=== PATIENT | female | born 2000 | race Caucasian/White ===

== ENCOUNTER 2024-10-20 11:46 | Emergency (ER) | payer MEDICAID, SELFPAY ==
[2024-10-20 11:48] VITALS: BP 134/83; PULSE 73; RESP 16; TEMP 36.9; O2SAT 100; BMI 23.5
--- NOTE | 2024-10-20 12:30 | US_ITS ---
PROCEDURE: TRANSVAGINAL NON-, 10/20/2024 REASON FOR EXAM: PELVIC PAIN, RECENT MISCARRIAGE TECHNIQUE: Grayscale, color Doppler, and spectral Doppler transvaginal pelvic ultrasound was performed. COMPARISON: None FINDINGS: Uterus: 9.4 x 5.6 x 3.9 cm, Anteverted. Unremarkable echotexture. Endometrium: 12 mm, vaguely trilaminar. No detected endometrial vascularity, however there is enhanced myometrial vascularity. Few punctate echogenic foci without shadowing up to 2 mm could reflect tiny calcifications or perhaps polyps. Cervix: Unremarkable. Right ovary: 3.6 x 3.5 x 2.7 cm. Unremarkable. Normal low resistance arterial and potentially faint superimposed venous waveforms. Left ovary: 3.9 x 3.4 x 2.3 cm. 1.6 x 1.6 x 1.1 cm simple appearing unilocular likely dominant follicle/physiologic cyst, O-RADS 1, no follow-up. Normal low resistance arterial waveforms. Free fluid: None visualized. Other: Prominent parauterine vasculature. US/Transvaginal Non- IMPRESSION: 1. Endometrial thickness 12 mm. Retained products is possible given thickness greater than 10 mm, however there is no detected endometrial vascularity to confirm this. Clinical follow-up recommended includ ing serial beta HCG. 2. Enhanced myometrial vascularity is a nonspecific finding in the s etting. Recommend attention on above recommended follow-up, as an underlying AVM could appear similarly, particularly if there i s a history of uterine instrumentation. 3. Few tiny endometrial echogenic foci up to 2 mm may reflect calcifications or perhaps tiny polyps. 4. Additional description as above. Reading Location: [id number]
--- NOTE | 2024-10-20 12:34 | ED.VIS.FEGU ---
HPI HPI - Female History of Present Illness Chief Complaint: Vag Bleeding Informant: patient Narrative Narrative: Patient is a 24-year-old female reports that she is G5, P2 who recently had a 13-week miscarriage. She states that she had a miscarriage at home and saw passage of the baby. This was on 10/30. She does not after she had BV and was treated for that at urgent care. She had her first period after this 1/2 weeks ago. She states she passed more tissue. She notes that she has had some mild spotting but today had a bad cramping. Not having any bleeding. Is concerned that maybe she has retained products of conception and came in. She denies any chance of being again. She has not had a subsequent test. Denies any fever or chills. Denies any urinary symptoms. Is not currently having any vaginal bleeding. Recently relocated to the [facility] from [place] and does not have an [employer]. PFSH PFSH Medical History no medical history Allergy/AdvReac Type Severity Reaction Status Date / Time iodine Allergy Hives Verified 10/20/24 11:50 Surgical History no surgical history Social History Smoking Status: Never smoker ROS ROS ED Constitutional Constitutional ED: Denies chills or fever(s) Cardiovascular Cardiovascular: Denies chest pain Respiratory/Chest Respiratory/Chest: Denies cough Gastrointestinal Gastrointestinal: Reports abdominal pain; Denies constipation, diarrhea, nausea or vomiting Musculoskeletal Musculoskeletal: Denies arthralgias or myalgias Integumentary Denies rash Neurologic Neurologic: Denies weakness Psychiatric Psychiatric: Denies anxiety or depression Hematologic/Lymphatic Hematologic/Lymphatic: Denies easy bleeding or easy bruising EXAM Physical Exam Const Vital Signs: 10/20/24 11:48 10/20/24 13:47 Temperature 98.5 F Temperature Source Oral Pulse Rate 73 78 Respiratory Rate 16 16 Blood Pressure 134/83 H 105/67 Blood Pressure Mean 100 79 Pulse Ox 100 99 Oxygen Delivery Method Room Air Positive well nourished and well developed General Appearance ED: well developed and NAD; Negative for pallor HEENT Reports moist mucous membranes Neck supple Chest Wall inspection of chest normal and palpation of chest normal Resp normal respiratory effort and clear to auscultation bilaterally Cardio regular rate and regular rhythm GI normal to inspection, nondistended, normoactive bowel sounds, soft to palpation and non-tender Back/Spine no CVA tenderness Neuro Sensorium / Orientation: alert Motor Exam: Negative for general weakness Psych mental status grossly normal Skin no rashes or lesions noted and no wounds General Skin Exam: Negative for pallor MDM MDM MDM Narrative Medical decision making narrative: Patient is a 24-year-old female who reports miscarriage at home about a month and a half ago presenting with worsening pelvic abdominal pain. Differential includes urinary tract infection, new , incomplete and endometritis. She is well-appearing with normal vital signs. She is afebrile. She has a benign abdominal exam. She is not having any significant bleeding at this time for the patient. Blood work occluding CBC, blood type, hCG quantitative and CMP is obtained. These are normal. Her quant is negative which is not consistent with retained products of conception. She is O+ and does not require RhoGAM. Ultrasound does show some slight thickening of the endometrium at 12 mm however there is no detected endometrial vascularity to confirm retained products of conception. There is some enhancement medial vascularity which is nonspecific. I did speak with [employer] on-call, Dr. Gordon. She states as the quant is negative and she is not having any bleeding and low suspicion for retained products. States that endometrial thickness of 12 mm at her age can be a normal variant. Is agreeable with outpatient follow-up. Patient states she needs to leave the ER. She does not want to stay for urinalysis. Discussed that without a urinalysis I cannot rule out UTI as the cause of her pelvic pain. 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 Is encouraged to follow-up outpatient with [employer]. Given return precautions. Discharged home in stable condition. Lab Data Attestation: I reviewed the patient's lab results. Labs: Laboratory Results - last 24 hr 10/20/24 12:10 WBC 4.7 RBC 4.39 Hgb 13.4 Hct 39.6 MCV 90.2 MCH 30.5 MCHC 33.8 RDW Std Deviation 39.7 RDW Coeff of Amanda 11.9 Plt Count 250 MPV 11.1 Immature Gran % (Auto) 0.200 Neut % (Auto) 51.8 Lymph % (Auto) 40.0 [place] % (Auto) 6.8 Eos % (Auto) 0.6 Baso % (Auto) 0.6 Absolute Neuts (auto) 2.4 Absolute Lymphs (auto) 1.88 Nucleated RBC % 0 Sodium 141 Potassium 4.0 Chloride 106 Carbon Dioxide 23.6 Anion Gap 11 BUN 7 Creatinine 0.76 Estim Creat Clear Calc 115.14 Est GFR (MDRD) Non-Af 111 BUN/Creatinine Ratio 8.5 L Glucose 88 Calcium 9.6 Total Bilirubin 0.35 AST 21 ALT 17 Alkaline Phosphatase 50 Total Protein 7.6 Albumin 4.3 Globulin 3.3 Albumin/Globulin Ratio 1.3 HCG, Quant < 1 Blood Type O POSITIVE Radiography Diagnostic Testing: Clinical Impression(s) from Imaging Studies Transvaginal US 10/20/24 12:30 IMPRESSION: 1. Endometrial thickness 12 mm. Retained products is possible given thickness greater than 10 mm, however there is no detected endometrial vascularity to confirm this. Clinical follow-up recommended including serial beta HCG. 2. Enhanced myometrial vascularity is a nonspecific finding in the setting. Recommend attention on above recommended follow-up, as an underlying AVM could appear similarly, particularly if there is a history of uterine instrumentation. 3. Few tiny endometrial echogenic foci up to 2 mm may reflect calcifications or perhaps tiny polyps. 4. Additional description as above. Reading Location: [facility] Discharge Plan Triage Chief Complaint: Vag Bleeding ED Provider: Tori Escobedo Dx/Rx/DC Orders Clinical Impression: Abnormal uterine bleeding, Pelvic pain Instructions: ED Dysfunctional Uterine Bleeding Primary Care Provider: Care Physician,No Primary Referrals: Virginia Gordon MD [Med Staff - Active Staff] - Care Physician,No Primary [Primary Care Provider] - Activity Restrictions/Additional Instructions: Please follow-up with [employer]. You have some slight thickening of your endometrial lining however your hormone is negative as we do not suspect you have retained fries of conception. Print Language: Lithuanian Disposition Disposition: Home, Self Care
[2024-10-20 13:01] LABS: Absolute Lymphocyte Count 1.88 X10^3/uL (0.83-4.51); Absolute Neutrophil Count 2.4 X10^3/uL (2.0-7.7); Basophil# 0.03 X10^3/uL; Basophil% 0.6 % (0-1); Eosinophil# 0.03 X10^3/uL; Eosinophils% 0.6 % (0-5); Hematocrit 39.6 % (37-47); Hemoglobin 13.4 g/dL (12.0-15.0); Lymphocyte # 1.88 X10^3/ul (0.83-4.51); Mean Corp Hgb Conc 33.8 g/dL (32-36); Mean Corpuscular Hgb 30.5 pg (27.0-32.0); Mean Corpuscular Volume 90.2 fL (81-99); Mean Platelet Vol. 11.1 fl (6.2-12.0); Monocyte# 0.32 X10^3/uL; Monocyte% 6.8 % (0-10); NRBC Flagged by Analyzer 0 % (0-5); Neutrophil # 2.43 X10^3/uL (2.7-7.7); Neutrophil % 51.8 % (47-70); Platelet Count 250 K/mm3 (150-450); RBC Distribution Width CV 11.9 % (11.6-14.6); RBC Distribution Width SD 39.7 fl (35.1-43.9); Red Blood Count 4.39 M/mm3 (4.2-5.4); White Blood Count 4.7 K/mm3 (4.4-11.0)
[2024-10-20 13:16] LABS: hCG Titer Quant., Serum < 1 mIU/mL (<9 non-preg)
[2024-10-20 13:47] VITALS: BP 105/67; PULSE 78; RESP 16; O2SAT 99
[2024-10-20 14:02] LABS: ALB/GLOB Ratio 1.3 RATIO (0.9-2.4); AST(SGOT) 21 U/L (<=31); Alanine Aminotransfer ALT/SGPT 17 U/L (<=34); Albumin, Serum 4.3 g/dL (3.5-5.0); Alkaline Phosphatase 50 U/L (35-104); Anion Gap 11 (5-15); BUN 7 mg/dL (4-19); BUN/Creat Ratio 8.5 RATIO (10-20); Calcium,Total 9.6 mg/dL (7.6-11.0); Carbon Dioxide 23.6 mmol/L (21.0-32.0); Chloride 106 mmol/L (98-108); Creatinine, Serum 0.76 mg/dL (0.70-1.20); EST Glomerular Filtration Rate 111 (>60); Estimated Creatinine Clearance 115.14 ml/min (50-250); Globulin 3.3 g/dL (2.2-4.2); Glucose 88 mg/dL (70-99); Protein, Total 7.6 g/dL (5.9-8.4); Sodium Level 141 mmol/L (133-145); Total Bilirubin 0.35 mg/dL (0.00-1.30)
== END 2024-10-20 15:07 | disposition home or self-care (01) ==
PROVIDERS: Emergency Provider Emergency Medicine; Visit Provider Emergency Medicine
DX: N93.8 Other specified abnormal uterine and vaginal bleeding (principal); R10.2 Pelvic and perineal pain
CPT/HCPCS: 76830; 80053; 84702; 85025; 86900; 86901; 93976; 99283; A4216